=== PATIENT | male | born 1955 | race Caucasian/White ===

== ENCOUNTER 2016-10-15 05:56 | Day surgery (SDC) | payer OTHER ==
[~2016-10-15] VITALS: Ht 172.7 cm; Wt 118.2 kg
[~2016-10-15 05:56] MED LIST: ADV500 IH; ALBU8.5H IH; ASA3 PO; DILT180C47 PO; FLUT16H NASAL; MONT10TA21 PO; MULT-1259 PO; NITR.4 SL; OMEG-12 PO; OMEP20 PO; ROSU20 PO
[2016-10-15] MEDS ORDERED: SODIUM CHLORIDE 0.9% 1,000 ML IV ONE ×2 (06:30→06:32)
[2016-10-15] MEDS ORDERED: MIDAZOLAM HCL 2 MG/2 ML VIAL ONE (07:52)
[2016-10-15] MEDS ORDERED: FentaNYL CITRATE-PF 100 MCG/2 ML VIAL ONE (07:52)
[2016-10-15] MEDS ORDERED: MethylPREDNISolone SOD SUCC 125 MG/2 ML VIAL IVP ONE (08:45)
[2016-10-15] MEDS ORDERED: MethylPREDNISolone SOD SUCC 125 MG/2 ML VIAL ONE (09:14)
[2016-10-15] MEDS ORDERED: BENZOCAINE 20% 50 MCG/SPRAY 57 GM TP ONE (12:05)
[2016-10-15] MEDS ORDERED: LIDOCAINE HCL 2% 30 ML JELLY TP ONE (12:05)
[2016-10-15] MEDS ORDERED: OXYGEN THERAPY IH SCH (20:00)
== END 2016-10-15 10:20 | disposition home or self-care (01) ==
LOC: SURGERY 05:56
PROVIDERS: ATTEND Internal Medicine Critical Care Medicine
DX: J38.4 Edema of larynx (principal); B37.0 Candidal stomatitis; J45.909 Unspecified asthma, uncomplicated; J44.9 Chronic obstructive pulmonary disease, unspecified; E78.00 Pure hypercholesterolemia, unspecified; M54.9 Dorsalgia, unspecified; F17.200 Nicotine dependence, unspecified, uncomplicated; Z90.49 Acquired absence of other specified parts of digestive tract; Z95.5 Presence of coronary angioplasty implant and graft
CPT/HCPCS: 31623; 31624; 71010; 87015; 87070; 87101; 87205; 87220; 93005; J2250; J2930; J3010; J7030; 88108; 88312